=== PATIENT | male | born 1985 | race Caucasian/White ===

== ENCOUNTER 2025-02-27 21:16 | Emergency (ER) | payer BC, SELFPAY ==
[2025-02-27] VITALS (8 sets, daily range): BP systolic 118–166; BP diastolic 84–98; PULSE 61–82; BMI 28.7
[2025-02-27 22:32] LABS: Urine Character Clear (Clear)
[2025-02-27 23:25] LABS: Hematocrit 35.2 % (39.0-52.0); Hemoglobin 13.0 g/dL (13.0-18.0); Mean Corp Hgb Conc. 36.9 g/dL (33.0-37.0); Mean Corpuscular Volume 87.8 fL (80.0-94.0); Nucleated Red Blood Cells % 0 % (-); Platelet Count 171 10^3/uL (130-400); Red Cell Dist. Width 12.2 % (11.5-14.5)
[2025-02-27 23:56] LABS: ALT (SGPT) 20 U/L (0-50); AST (SGOT) 24 U/L (17-59); Albumin 4.5 g/dl (3.5-5.0); Alkaline Phosphatase 41 U/L (38-126); Blood Urea Nitrogen 19 mg/dl (9-20); Calcium 9.0 mg/dl (8.4-10.2); Carbon Dioxide 26 mmol/L (22-30); Chloride 104 mmol/L (98-107); Estimated Creatinine Clearance > 125 ml/min; Glucose 95 mg/dl (70-99); Potassium 4.3 mmol/L (3.5-5.1); Sodium 136 mmol/L (135-145); Total Protein 7.1 g/dl (6.3-8.2); eGFR > 60.00
--- NOTE | 2025-02-28 00:17 | ED.GENMED ---
History of Present Illness
General
Chief Complaint: Chest Pain
Source: patient
Exam Limitations: none
Time Seen by Provider: 02/27/25 21:48
Nursing documentation reviewed up to this point in time: agreed with
History of Present Illness
History of Present Illness:
Patient to ED with complaint of chest pain, difficulty breathing, elevated BP for the past few days. No n/v/diaphoresisi. No prior history of same. TO ED with spouse for eval
Past History
Past History
ED Past Medical History: None and Other (Hepatitis C)
ED Past Surgical History: Cholecystectomy
Review of Systems
Review of Systems
Allergies reviewed?: Yes
All Other Systems: ROS reviewed and negative except as documented in HPI and ROS
Constitutional: Reports fatigue
EENT: Reports no symptoms
Respiratory: Reports no symptoms
Cardiac: Reports chest pain
ABD/GI: Reports nausea
: Reports no symptoms
Musculoskeletal: Reports no symptoms
Skin: Reports no symptoms
Neurological: Reports no symptoms
Psychiatric: Reports no symptoms
Phy Exam
General Physical Exam
General Presentation: well appearing and no apparent distress
General age: appears stated age
General Skin: warm and dry
General Habitus: normal
General Mental: alert
Cardiovascular Exam
Cardiovascular Exam: regular rate/rhythm and no edema
Pulmonary Exam
Pulmonary Exam: lungs clear and no respiratory distress
Musculoskeletal Exam
Musculoskeletal Exam: full ROM, no edema and neuro vasc intact
Skin Exam
Skin Exam: normal color, warm/dry and no rash
Psychiatric Exam
Psychiatric Exam: normal mood/affect
Scores
Heart Score for Chest Pain Patients
STEMI patient?: No
History: Slightly or Non-Suspicious
ECG: Normal
Age: </= 45 years
Risk Factors: No Risk Factors
Troponin: </= Normal Limit
Heart Score for Chest Pain Patients: 0
Heart Score Risk: 2.5% MACE over next 6 weeks
Course
Orders/Labs/Results
Orders:
Orders
02/27/25 21:32
Electrocardiogram (*1) Urgent
Reason for Study: Chest Pain
EKG- Treatment ONCE
02/27/25 22:01
Orthostatic VS- Treatment ONCE
CR Chest - 2 Views Urgent
Comment:
Reason For Exam: pain
02/27/25 22:05
Complete Blood Count/With Diff Urgent
Comprehensive Metabolic Panel Urgent
TSH Reflex To Free T4 Urgent
Urinalysis Reflex To Culture Urgent
Date Specimen was Collected: 02/27/25
Time Specimen was Collected: 22:03
Abnormal Lab Results
02/27/25
22:05
RBC 4.01 L 10^6/uL
(4.70-6.10)
Hct 35.2 L %
(39.0-52.0)
MCH 32.4 H pg
(27.0-31.0)
02/27/25 22:05
02/27/25 22:05
Vital Signs
Initial and Last Documented VS:
Initial Vital Signs
Temp Pulse Resp BP Pulse Ox
98.1 F 74 16 166/98 99
02/27/25 21:23 02/27/25 21:23 02/27/25 21:23 02/27/25 21:23 02/27/25 21:23
Last Documented Vital Signs
Temp Pulse Resp BP Pulse Ox
98.1 F 56 14 131/95 97
02/27/25 21:23 02/28/25 01:06 02/28/25 01:06 02/28/25 01:06 02/28/25 01:06
*Radiology
Radiology exam reviewed: radiology read reviewed
*Pulse Oximetry
SaO2: 96
Oxygen Mode of Delivery: Room air
Patient hypoxic: no
*EKG
Interpretation: normal
Rate: normal
Rhythm: sinus
*Critical Care Note
Total Time (30-74mins, 75-104mins- exclusive of procedures): Not Applicable
Update Note
Update Note:
Patient to ED wt complaint of intermittent chest pain, SOB for the past few days. No symptoms while in ED. Labs, EKG reviewed, no findings to explain his symptoms. He notes that symptoms started this week while working outside, dehydration may
have contributed to his symptoms. WIll continue to rehydrate. BP with mild elevation noted. He will keep BP diary and follow upw ith PCP. Given instructions on s/s to return to ED and he is agreeable top annette.
ED Attending Note
-
Portions of this chart may have been created with voice recognition software.� Occasional wrong word or��sound alike� substitutions may have occurred due to the inherent limitations of voice recognition software.
Discharge Plan
Departure
Patient Disposition: Home (Routine Discharge)
Date of Disposition: 02/28/25
Time of Disposition: 00:40
Patient with high blood pressure during this ER visit?: No
Condition: Good
Covid-19: Not Applicable
Discharge Problem:
Weakness
Instructions: Chest Pain That Is Not Caused by the Heart (DC), Heat Illness ED, Dehydration in adults - ED discharge instructions
Prescriptions:
No Action
Mavyret
100 mg PO DAILY
Suboxone
6 mg PO DAILY
Referrals:
PRIVATE,PHYSICIAN [Family Provider, Internal Medicine]
Stand Alone Forms: Return to Work
Activity Restrictions/Additional Instructions:
Follow up with your family doctor. Return to the emergency department immediately for any changes in/worsening of your symptoms.
Interventions
Interventions:
*Risk Screen - Suicide Last Done: 02/27/25 21:23
*General Assessment Last Done: 02/27/25 21:23
*Neglect/Abuse Screening Last Done: 02/27/25 21:23
*ED- Fall Risk Assessment Last Done: 02/27/25 21:23
*ED COVID-19 Vaccine History Last Done: 02/27/25 21:23
*Nursing Disposition Last Done: 02/28/25 01:06
ED- Cardiac Assessment Last Done: 02/27/25 22:02
Discharge Date and Time
Discharge Date/Time: 02/28/25 01:07
Print Language: [place]
[2025-02-28 01:00] VITALS: BP 131/95
[2025-02-28 01:06] VITALS: BP 131/95
== END 2025-02-28 01:07 | disposition home or self-care (01) ==
LOC: EMR 21:16
PROVIDERS: Nurse Practitioner; EMERGENCY PHYSICIAN Emergency Medicine
DX: R53.1 Weakness (principal); Z90.49 Acquired absence of other specified parts of digestive tract
CPT/HCPCS: 99283; 71046; 80053; 81003; 84443; 85025; 93005